=== PATIENT | male | born 1970 | race Hispanic/Latino ===

== ENCOUNTER 2023-07-14 05:41 | Emergency (ER) | payer OTHER ==
[2023-07-14 06:09] LABS: #Basophils 0.1 thou/uL (0.0-0.2); #Eosinphils 0.2 thou/uL (0.0-0.7); #Monocytes 0.9 thou/uL (0.11-0.59); #Neutrophils 10.1 thou/uL (1.40-6.50); %Basophils 0.9 % (0.0-1.0); %Eosinophils 1.8 % (0.0-10.0); %Lymphocytes 15.3 % (21.0-51.0); %Monocytes 6.4 % (0.0-10.0); %Neutrophils 75.6 % (42.0-75.0); Hematocrit 46.7 % (42.0-52.0); Hemoglobin 15.2 g/dL (14.0-18.0); Mean Corpuscular HGB CONC 32.5 g/dL (32.0-36.0); Platelet Count 324 10x3/uL (130-400); RBC Distribution Width 13.1 % (11.5-14.5); Red Blood Cell (RBC) Count 5.84 mill/uL (4.70-6.10); White Blood Cell (WBC) Count 13.4 10x3/uL (4.8-10.8)
[2023-07-14] MEDS ORDERED: Ketorolac Tromethamine 30 MG/ML VIAL ONE (06:19)
[2023-07-14] MEDS ORDERED: Simethicone Chewable 80 MG TAB ONE (06:19)
[2023-07-14] MEDS ORDERED: Lactated Ringer's 1,000 ML ONE ×2 (06:19→08:10)
[2023-07-14] MEDS ORDERED: Dicyclomine 20 MG/2 ML VIAL ONE (06:19)
[2023-07-14 06:25] LABS: ALT (SGPT) 29 U/L (8-55); AST (SGOT) 24 U/L (5-34); Albumin 3.9 g/dL (3.5-5.0); Alkaline Phosphatase 86 U/L (40-110); Anion Gap 14 mmol/L (10-20); BUN (Urea Nitrogen) 18 mg/dL (8.4-25.7); Bilirubin, Total 0.6 mg/dL (0.2-1.2); Calc. Creatinine Clearance 0 mL/min (70-130); Calcium 8.7 mg/dL (7.8-10.44); Carbon Dioxide 26 mmol/L (22-29); Chloride 105 mmol/L (98-107); Estimated GFR 102; Globulin 3.2 g/dL (2.4-3.5); Glucose 132 mg/dL (70-105); Lipase 13 U/L (8-78); Potassium 3.6 mmol/L (3.5-5.1); Protein, Total 7.1 g/dL (6.0-8.3); Sodium 141 mmol/L (136-145)
[2023-07-14] MEDS ORDERED: Sodium Chloride 0.9% 100 ML ONE (07:46)
[2023-07-14] MEDS ORDERED: Piperacillin/Tazobactam 4.5 GM VIAL ONE (07:46)
[2023-07-14] MEDS ORDERED: Sodium Chloride 0.9% 1,000 ML ONE (08:27)
[2023-07-14] MEDS ORDERED: Iopamidol 370 76% 100 ML VIAL ONE (08:47)
== END 2023-07-14 10:18 | disposition short-term general hospital (02) ==
LOC: MADERS 05:41
DX: K35.80 Unspecified acute appendicitis (principal); I10 Essential (primary) hypertension; Z79.899 Other long term (current) drug therapy
CPT/HCPCS: 74177; 80053; 83605; 83690; 85025; 93005; 94760; 96365; 96372; 96375; J1885; J2543; J3490; J7050; J7120; Q9967